=== PATIENT | female | born 1950 | race African-American/Black ===

== ENCOUNTER 2022-03-19 11:48 | Outpatient (CLI) | payer MEDICARE, BC ==
[2022-03-19 12:51] LABS: #Eosinphils 0.2 10x3/uL (0.0-0.5); #Monocytes 0.4 10x3/uL (0.0-1.1); %Basophils 0.9 % (0.0-2.0); %Eosinophils 3.4 % (0.0-6.0); %Lymphocytes 43.2 % (18.0-47.0); %Monocytes 9.1 % (0.0-10.0); %Neutrophils 43.2 % (40.0-75.0); Hemoglobin 13.4 g/dL (12.0-15.5); Mean Corpuscular HGB CONC 33.9 g/dL (32.0-36.0); Mean Corpuscular Hemoglobin 31.2 pg (27.0-33.0); Mean Corpuscular Volume 92.1 fl (81.6-98.3); Mean Platelet Volume 10.4 fl (7.4-10.4); Platelet Count 276 10x3/uL (150-450); RBC Distribution Width 13.5 % (11.5-14.5); Red Blood Cell (RBC) Count 4.29 10x6/uL (3.90-5.03); White Blood Cell (WBC) Count 4.7 10x3/uL (3.5-10.5)
[2022-03-19 13:14] LABS: Prothrombin Time 10.4 sec (9.5-12.1)
[2022-03-19 13:18] LABS: Anion Gap 16 mmol/L (10-20); BUN (Urea Nitrogen) 17 mg/dL (9.8-20.1); Calc. Creatinine Clearance 0 mL/min (70-130); Calcium 9.8 mg/dL (7.8-10.44); Carbon Dioxide 22 mmol/L (23-31); Chloride 108 mmol/L (98-107); Estimated GFR 76; Glucose 66 mg/dL (83-110); Potassium 4.8 mmol/L (3.5-5.1); Sodium 141 mmol/L (136-145)
== END 2022-03-19 11:49 | disposition home or self-care (01) ==
LOC: LABBT 11:48
PROVIDERS: ATTEND Orthopaedic Surgery
DX: Z01.818 Encounter for other preprocedural examination (principal); M17.0 Bilateral primary osteoarthritis of knee
CPT/HCPCS: 80048; 85025; 85610; 87081; 93005; 93010

== ENCOUNTER 2023-04-25 12:47 | Outpatient (CLI) | payer MEDICARE ==
[2023-04-25 14:25] LABS: #Eosinphils 0.1 10x3/uL (0.0-0.5); #Monocytes 0.4 10x3/uL (0.0-1.1); #Neutrophils 2.6 10x3/uL (1.5-8.4); %Basophils 0.8 % (0.0-2.0); %Eosinophils 1.4 % (0.0-6.0); %Lymphocytes 38.6 % (18.0-47.0); %Monocytes 8.1 % (0.0-10.0); %Neutrophils 50.9 % (40.0-75.0); Hematocrit 38.6 % (34.9-44.5); Hemoglobin 12.9 g/dL (12.0-15.5); Mean Corpuscular HGB CONC 33.4 g/dL (32.0-36.0); Mean Corpuscular Hemoglobin 30.4 pg (27.0-33.0); Mean Corpuscular Volume 90.8 fl (81.6-98.3); Mean Platelet Volume 10.1 fl (7.4-10.4); Platelet Count 280 10x3/uL (150-450); RBC Distribution Width 13.7 % (11.5-14.5); Red Blood Cell (RBC) Count 4.25 10x6/uL (3.90-5.03); White Blood Cell (WBC) Count 5.1 10x3/uL (3.5-10.5)
[2023-04-25 14:47] LABS: Anion Gap 15 mmol/L (10-20); BUN (Urea Nitrogen) 21 mg/dL (9.8-20.1); Calc. Creatinine Clearance 0 mL/min (70-130); Calcium 9.7 mg/dL (7.8-10.44); Carbon Dioxide 23 mmol/L (23-31); Chloride 105 mmol/L (98-107); Estimated GFR 65; Glucose 87 mg/dL (83-110); Potassium 4.3 mmol/L (3.5-5.1); Sodium 139 mmol/L (136-145)
[2023-04-25 14:50] LABS: Prothrombin Time 10.6 sec (9.5-12.1)
== END 2023-04-25 12:48 | disposition home or self-care (01) ==
LOC: LABBT 12:47
PROVIDERS: ATTEND Orthopaedic Surgery
DX: Z01.818 Encounter for other preprocedural examination (principal); M17.12 Unilateral primary osteoarthritis, left knee
CPT/HCPCS: 80048; 85025; 85610; 87081; 93005; 93010

== ENCOUNTER 2023-04-29 08:30 | Observation (INO) | payer MEDICARE ==
[2023-04-29] MEDS ORDERED: Tranexamic Acid 1,000 MG/10 ML VIAL ONE (08:52)
[2023-04-29] MEDS ORDERED: Vancomycin (BATCH) 1.5 GM/300 ML BAG ONE (08:53)
[2023-04-29] MEDS ORDERED: CEFAZOLIN 2 GM VIAL ONE (08:53)
[2023-04-29] MEDS ORDERED: Sodium Chloride 0.9% 100 ML ONE ×2 (08:53→08:56)
[2023-04-29] MEDS ORDERED: Lidocaine 1% PF 5 ML VIAL ONE (09:24)
[2023-04-29] MEDS ORDERED: Ondansetron PF 4 MG/2 ML Vial ONE (09:24)
[2023-04-29] MEDS ORDERED: PROPOFOL 20 ML ONE (09:24)
[2023-04-29] MEDS ORDERED: fentaNYL 50 mcg/mL 1 mL Vial ONE (09:25)
[2023-04-29] MEDS ORDERED: Bupivacaine PF 0.5% 30 ML VIAL ONE ×2 (09:26→09:53)
[2023-04-29] MEDS ORDERED: Midazolam HCl 2 mg/2 ml Vial ONE (09:26)
[2023-04-29] MEDS ORDERED: Dexamethasone 20 MG/5 ML VIAL ONE (09:42)
[2023-04-29] MEDS ORDERED: Ketamine In 0.9 % NaCl 50 MG/5 ML SYRINGE ONE (09:42)
[2023-04-29] MEDS ORDERED: Bupivacaine HCl 0.5%/Epinephrine 1:200,000/PF 30 ml Vial ONE (09:48)
[2023-04-29] MEDS ORDERED: fentaNYL 50 mcg/mL 1 mL Vial SLOW IVP PRN (10:07)
[2023-04-29] MEDS ORDERED: HYDROcodone/Acetaminophen 10/325 mg Tablet PO PRN (10:15)
[2023-04-29] MEDS ORDERED: Acetaminophen 325 MG TAB PO PRN (10:15)
[2023-04-29] MEDS ORDERED: traMADol HCl 50 MG TAB PO PRN (10:15)
[2023-04-29] MEDS ORDERED: Promethazine HCl 25 MG/ML VIAL IM PRN ×3 (10:15→11:08)
[2023-04-29] MEDS ORDERED: Zolpidem Tartrate 5 MG TAB PO PRN ×2 (10:15)
[2023-04-29] MEDS ORDERED: diphenhydrAMINE 25 MG CAP PO PRN (10:15)
[2023-04-29] MEDS ORDERED: Ropivacaine 0.2% 550 ML 550 ML NERVE BLCK SCH (10:15)
[2023-04-29] MEDS ORDERED: Ondansetron PF 4 MG/2 ML Vial IVP PRN ×2 (10:15)
[2023-04-29] MEDS ORDERED: HYDROmorphone 2 MG/ML VIAL ONE (10:20)
[2023-04-29] MEDS ORDERED: PHENYLEPHRINE-NS 100 MCG/ML 10 ML SYRINGE ONE (10:25)
[2023-04-29] MEDS ORDERED: ePHEDrine Sulfate 50 MG/10 ML VIAL ONE (10:31)
[2023-04-29] MEDS ORDERED: Ondansetron HCl/PF 4 MG/2 ML Vial IVP PRN (11:08)
[2023-04-29] MEDS ORDERED: HYDROmorphone 2 MG/ML VIAL SLOW IVP PRN (11:08)
[2023-04-29] MEDS ORDERED: Morphine Sulfate 2 MG/ML SYRINGE SLOW IVP PRN (11:08)
[2023-04-29] MEDS ORDERED: Ketorolac Tromethamine 30 MG (1 mL) VIAL ONE (11:08)
[2023-04-29] MEDS ORDERED: Meperidine HCl/PF 25 MG/ML VIAL SLOW IVP PRN (11:08)
[2023-04-29] MEDS ORDERED: HYDROmorphone 0.5 MG/0.5 ML SYRINGE ONE (12:11)
[2023-04-29] MEDS: Ketorolac Tromethamine 30 MG (1 mL) VIAL IVP SCH ×2 (17:17→17:27)
[2023-04-29] MEDS: Sodium Chloride 0.9% 1,000 ML IV SCH ×2 (17:22→20:15)
[2023-04-29] MEDS: CEFAZOLIN 2 GM in Sodium Chloride 0.9% 100 ML IVPB SCH (17:23)
[2023-04-29] MEDS: Senokot S 8.6-50 MG TAB PO SCH (21:13)
[2023-04-29] MEDS: Aspirin 81 mg Enteric Coated Tablet PO SCH (21:13)
[2023-04-29] MEDS: traMADol HCl 50 MG TAB PO PRN (21:14)
[2023-04-29] MEDS: Ferrous Gluconate 324 MG TAB PO SCH (21:14)
[2023-04-30] MEDS: CEFAZOLIN 2 GM in Sodium Chloride 0.9% 100 ML IVPB SCH (00:26)
[2023-04-30] MEDS: Ketorolac Tromethamine 30 MG (1 mL) VIAL IVP SCH ×5 (00:26→23:36)
[2023-04-30] MEDS: traMADol HCl 50 MG TAB PO PRN ×2 (03:55→09:46)
[2023-04-30 04:56] VITALS: BMI 33.4
[2023-04-30 05:48] LABS: Hematocrit 32.6 % (36.0-47.0); Hemoglobin 10.6 g/dL (12.0-16.0); Mean Corpuscular HGB CONC 32.5 g/dL (32.0-36.0); Mean Corpuscular Hemoglobin 31.1 pg (27.0-31.0); Mean Corpuscular Volume 95.6 fl (78.0-98.0); Mean Platelet Volume 10.1 fL (7.4-10.4); Platelet Count 219 10x3/uL (130-400); Red Blood Cell (RBC) Count 3.41 mill/uL (4.20-5.40); White Blood Cell (WBC) Count 9.7 10x3/uL (4.8-10.8)
[2023-04-30] MEDS: Sodium Chloride 0.9% 1,000 ML IV SCH ×2 (06:00→16:29)
[2023-04-30] MEDS ORDERED: Non-Formulary Item 1 EACH (Multivitamin [Multiple Vitamins] 1 EACH Tablet) PO SCH ×2 (09:00)
[2023-04-30] MEDS: Saccharomyces boulardii 250 MG CAP PO SCH (09:46)
[2023-04-30] MEDS: Aspirin 81 mg Enteric Coated Tablet PO SCH ×2 (09:46→21:03)
[2023-04-30] MEDS: Ferrous Gluconate 324 MG TAB PO SCH ×2 (09:46→21:03)
[2023-04-30] MEDS: Senokot S 8.6-50 MG TAB PO SCH ×2 (09:46→21:03)
[2023-04-30] MEDS: Cholecalciferol 1,000 UNITS (25 MCG) TAB PO SCH (09:47)
[2023-04-30] MEDS: Multivitamin W/ Minerals 1 TAB PO SCH (09:47)
[2023-04-30] MEDS: Losartan 25 MG TAB PO SCH (09:47)
[2023-04-30] MEDS: HYDROcodone/Acetaminophen 10/325 mg Tablet PO PRN (21:03)
[2023-05-01] MEDS: Sodium Chloride 0.9% 1,000 ML IV SCH ×2 (00:05→14:23)
[2023-05-01] MEDS: Ketorolac Tromethamine 30 MG (1 mL) VIAL IVP SCH (05:35)
[2023-05-01] MEDS: Aspirin 81 mg Enteric Coated Tablet PO SCH (09:26)
[2023-05-01] MEDS: Saccharomyces boulardii 250 MG CAP PO SCH (09:26)
[2023-05-01] MEDS: Senokot S 8.6-50 MG TAB PO SCH (09:27)
[2023-05-01] MEDS: Cholecalciferol 1,000 UNITS (25 MCG) TAB PO SCH (09:27)
[2023-05-01] MEDS: Losartan 25 MG TAB PO SCH (09:27)
[2023-05-01] MEDS: Ferrous Gluconate 324 MG TAB PO SCH (09:27)
[2023-05-01] MEDS: Multivitamin W/ Minerals 1 TAB PO SCH (09:27)
[2023-05-01] MEDS ORDERED: Polyethylene Glycol 3350 17 GM Packet PO PRN (09:45)
[2023-05-01 12:25] VITALS: BP 163/87; TEMP 99.4
[2023-05-01] MEDS: HYDROcodone/Acetaminophen 10/325 mg Tablet PO PRN (16:06)
== END 2023-05-01 16:15 | disposition home or self-care (01) ==
LOC: SDC 08:30 → SURG A 09:00
PROVIDERS: ADMIT Orthopaedic Surgery; ATTEND Orthopaedic Surgery
PROC: 0SRD0JZ Replacement of Left Knee Joint with Synthetic Substitute, Open Approach (ICD-10-PCS; principal; 2023-04-29)
DX: M17.12 Unilateral primary osteoarthritis, left knee (principal); Z90.710 Acquired absence of both cervix and uterus; Z96.651 Presence of right artificial knee joint; Z79.899 Other long term (current) drug therapy
CPT/HCPCS: 27447; 73560; 85027; 96374; 96375 ×2; 96376 ×3; 97110 ×3; 97116 ×3; 97530; A4306; C1776; G0378 ×3; J3010; J3370; 36415; J0665; J1100; J1170; J1885; J2250; J2405; J2704; J2795; J3490; J7050